=== PATIENT | male | born 1990 | race Caucasian/White ===

== ENCOUNTER → 2017-04-21 | Outpatient (CLI) | payer BC ==
--- NOTE | 2017-04-21 17:37 | US ---
EXAMINATION TYPE: US liver DATE OF EXAM: 04/21/2017 COMPARISON: NONE CLINICAL HISTORY: Elevated Liver Enzymes R74.8. EXAM MEASUREMENTS: Liver Length: 12.2 cm Gallbladder Wall: 0.19 cm CBD: 0.41 cm Right Kidney: 9.1 x 4.4 x 3.2 cm Pancreas: Obscured by bowel gas Liver: wnl Gallbladder: wnl Evidence for sonographic Nunez's sign: No CBD: wnl Right Kidney: No hydronephrosis or masses seen IMPRESSION: Negative liver ultrasound exam. No dilated ducts. No focal liver defect.
== END | disposition home or self-care (01) ==
LOC: RADUSMAIN 16:23
PROVIDERS: ATTEND Family Medicine
DX: R74.8 Abnormal levels of other serum enzymes (principal)
CPT/HCPCS: 76705

== ENCOUNTER → 2017-05-06 | Outpatient (CLI) | payer BC ==
--- NOTE | 2017-05-06 11:02 | MR ---
EXAMINATION TYPE: MR angio head wo con DATE OF EXAM: 05/06/2017 10:57 AM COMPARISON: NONE HISTORY: headaches x3 months TECHNIQUE: Time of flight images focusing on the [place] of [place] were performed without contrast. FINDINGS: The vertebral arteries are codominant. The right posterior communicating artery is visualiz ed. The left is not. Both ophthalmic arteries are visualized. There is normal arborization of the mid dle cerebral artery. No sizable aneurysm is seen. IMPRESSION: NORMAL MRI OF THE [place].
--- NOTE | 2017-05-06 11:12 | MR ---
EXAMINATION TYPE: MR brain wo/w con DATE OF EXAM: 05/06/2017 11:07 AM COMPARISON: NONE HISTORY: headaches constantly TECHNIQUE: Multiplanar, multiecho imaging of the brain was obtained with and without intravenous adm inistration of 20 mL intravenous MultiHance. FINDINGS: Midline structures are unremarkable. There is a normal craniocervical junction. Echoplanar diffusion imaging is normal. The orbits are unremarkable. There is no evidence of a CP angle mass lesion. No focal lesion is seen. There is no mass effect or midline shift. I do not see evidence of intracran ial blood. Following intravenous administration of gadolinium, I do not see evidence of abnormal enhancement. IMPRESSION: NORMAL MRI OF THE BRAIN.
== END | disposition home or self-care (01) ==
LOC: RADMRIMAIN 10:11
PROVIDERS: ATTEND Psychiatry & Neurology Neurology
DX: C71.9 Malignant neoplasm of brain, unspecified (principal); I67.1 Cerebral aneurysm, nonruptured
CPT/HCPCS: 70544; 70553; A9577

== ENCOUNTER 2023-11-02 15:30 | Emergency (ER) | payer BC, OTHER ==
[2023-11-02] MEDS ORDERED: PROPARACAINE 0.5% OPHTH DROPS 15 ML BTL RIGHT EYE STA (15:50)
--- NOTE | 2023-11-02 16:06 | ED ---
Eye Problem HPI - General Chief complaint: Eye Problems Stated complaint: EYE INJURY Time Seen by Provider: 11/02/23 15:48 Source: patient, RN notes reviewed Mode of arrival: ambulatory Limitations: no limitations - History of Present Illness Initial comments: Patient is a 33-year-old male presenting to the ER with a chief complaint of a right eye injury. Patient states he bent down to pick something up and accidentally poked his right eye with a stick. Patient is endorsing some double blurry vision. Patient is also stating photophobia. Denies any other injuries. Tetanus is unknown. Patient states this happened around 11 AM this morning. - Related Data Allergies Allergy/AdvReac Type Severity Reaction Status Date / Time No Known Allergies Allergy Verified 11/02/23 15:37 Review of Systems ROS Statement: Those systems with pertinent positive or pertinent negative responses have been documented in the HPI. ROS Other: All systems not noted in ROS Statement are negative. Past Medical History Past Medical History: No Reported History Past Surgical History: Hernia Repair Smoking Status: Current every day smoker General Exam Limitations: no limitations General appearance: alert, in no apparent distress Head exam: Present: atraumatic, normocephalic, normal inspection Eye exam: Present: normal appearance, PERRL (Right), EOMI, conjunctival injection, other (Corneal abrasion right) Pupils: Present: normal accommodation ENT exam: Present: normal exam, mucous membranes moist Neck exam: Present: normal inspection. Absent: tenderness, meningismus, lymphadenopathy Respiratory exam: Present: normal lung sounds bilaterally. Absent: respiratory distress, wheezes, rales, rhonchi, stridor Cardiovascular Exam: Present: regular rate, normal rhythm, normal heart sounds. Absent: systolic murmur, diastolic murmur, rubs, gallop, clicks Neurological exam: Present: alert, oriented X3, CN II-XII intact Psychiatric exam: Present: normal affect, normal mood Skin exam: Present: warm, dry, intact, normal color. Absent: rash Course Vital Signs 11/02/23 11/02/23 15:34 17:35 Temperature 97.7 F 98.4 F Pulse Rate 93 85 Respiratory 16 18 Rate Blood Pressure 149/88 133/76 O2 Sat by Pulse 98 95 Oximetry Medical Decision Making - Medical Decision Making Was pt. sent in by a medical professional or institution (, PA, COMMERCIAL TELLER, urgent care, hospital, or [place] [facility] care facility...) When possible be specific @ -No Did you speak to anyone other than the patient for history (EMS, parent, family, police, friend...)? What history was obtained from this source @ -No Did you review nursing and triage notes (agree or disagree)? Why? @ -I reviewed and agree with nursing and triage notes Were old charts reviewed (outside hosp., previous admission, EMS record, old EKG, old radiological studies, urgent care reports/EKG's, [place] health care facility records)? Report findings @ -No old charts were reviewed Differential Diagnosis (chest pain, altered mental status, abdominal pain women, abdominal pain men, vaginal bleeding, weakness, fever, dyspnea, syncope, headache, dizziness, GI bleed, back pain, seizure, CVA, palpatations, mental health, musculoskeletal)? @ -Corneal abrasion, ocular foreign body, globe rupture, conjunctivitis this list is not meant to be all-inclusive. EKG interpreted by me (3pts min.). @ -None X-rays interpreted by me (1pt min.). @ -None done CT interpreted by me (1pt min.). @ -None done U/S interpreted by me (1pt. min.). @ -None done What testing was considered but not performed or refused? (CT, X-rays, U/S, labs)? Why? @ -None What meds were considered but not given or refused? Why? @ -None Did you discuss the management of the patient with other professionals (professionals i.e. , PA, COMMERCIAL TELLER, lab, RT, psych nurse, social sciences instructor, bike designer, teacher, nuclear security officer, community case manager)? Give summary @ -No Was smoking cessation discussed for >3mins.? @ -No Was critical care preformed (if so, how long)? @ -No Were there social determinants of health that impacted care today? How? (Homelessness, low income, unemployed, alcoholism, drug addiction, transportation, low edu. Level, literacy, decrease access to med. care, residential, rehab)? @ -No Was there de-escalation of care discussed even if they declined (Discuss DNR or withdrawal of care, Hospice)? DNR status @ -No What co-morbidities impacted this encounter? (DM, HTN, Smoking, COPD, CAD, Cancer, CVA, ARF, Chemo, Hep., AIDS, mental health diagnosis, sleep apnea, morbid obesity)? @ -None Was patient admitted / discharged? Hospital course, mention meds given and route, prescriptions, significant lab abnormalities, going to OR and other pertinent info. @ -Discharge. Patient is a 33-year-old male presented to the ER with a chief complaint of right eye injury. Vitals stable. History and physical exam were completed. Patient was in no signs of acute distress. Fluorescein stain of right eye did show a corneal abrasion. No foreign bodies present. Extraocular motions intact. Pupils equal round reactive. Visual acuity right eye 20/40 uncorrected. Left eye uncorrected 20/30. Tetanus updated. Patient prescribed Tobrex eyedrops and instructed to use it for 5 days. Return parameters were discussed. Patient be discharged stable condition follow-up to PCP/ophthalmology. Patient expressed understanding and agreement with care plan. Undiagnosed new problem with uncertain prognosis? @ -No Drug Therapy requiring intensive monitoring for toxicity (Heparin, Nitro, Insulin, Cardizem)? @ -No Were any procedures done? @ -No Diagnosis/symptom? @ -Corneal abrasion Acute, or Chronic, or Acute on Chronic? @ -Acute Uncomplicated (without systemic symptoms) or Complicated (systemic symptoms)? @ -Uncomplicated Side effects of treatment? @ -No Exacerbation, Progression, or Severe Exacerbation? @ -No Poses a threat to life or bodily function? How? (Chest pain, [place], [place], pneumonia, PE, COPD, DKA, ARF, appy, cholecystitis, CVA, Diverticulitis, Homicidal, Suicidal, threat to staff... and all critical care pts) @ -No Disposition Clinical Impression: Corneal abrasion Disposition: HOME SELF-CARE Condition: Stable Instructions (If sedation given, give patient instructions): Corneal Abrasion (DC) Additional Instructions: Please use tobrex eye drops for 5 days. Follow-up with ophthalmology if symptoms persist. Return to ER for any new or worsening symptoms. Is patient prescribed a controlled substance at d/c from ED?: No Referrals: Berto Cummings MD [Primary Care Provider] - 1-2 days Harshal Grossman MD [STAFF PHYSICIAN] - 1-2 days Emmett Hamilton DO [Doctor of Osteopathic Medicine] - 1-2 days Yulia Ashraf MD [STAFF PHYSICIAN] - 1-2 days Horace Rosenthal MD [STAFF PHYSICIAN] - 1-2 days Pascale Garcia MD [STAFF PHYSICIAN] - 1-2 days Bari Xiao MD [STAFF PHYSICIAN] - 1-2 days Time of Disposition: 16:31
[2023-11-02] MEDS ORDERED: DIPH,PERTUS(ACELL)TETVAC-LF 0.5 ML VIAL IM ONE (16:12)
[2023-11-02] MEDS: FLUORESCEIN STRIPS 1 MG STRIP RIGHT EYE ONE ×3 (16:13→16:50)
[2023-11-02] MEDS ORDERED: TOBRAMYCIN 0.3% OPHTH DROPS 5 ML BTL RIGHT EYE STA (16:27)
[2023-11-02 17:52] VITALS: BP 133/76; PULSE 85; RESP 18; TEMP 98.4
== END 2023-11-02 17:35 | disposition home or self-care (01) ==
LOC: EC 15:30
DX: S05.01XA Injury of conjunctiva and corneal abrasion without foreign body, right eye, initial encounter (principal); F17.200 Nicotine dependence, unspecified, uncomplicated; Z23 Encounter for immunization; W22.8XXA Striking against or struck by other objects, initial encounter; Y92.009 Unspecified place in unspecified non-institutional (private) residence as the place of occurrence of the external cause
CPT/HCPCS: 90471; 90715; 99283